=== PATIENT | female | born 1945 | race Two or more races ===

== ENCOUNTER 2018-09-25 17:18 | Inpatient (IN) | payer MEDICARE, MEDICAID | END 2018-09-29 13:40 | disposition home or self-care (01) | LOC: ER 17:18 → SUR 3N 09-26 15:01 → ED HOLD 23:36 | DX: A41.9 Sepsis, unspecified organism (principal); N17.0 Acute kidney failure with tubular necrosis; L03.113 Cellulitis of right upper limb; S61.439A Puncture wound without foreign body of unspecified hand, initial encounter ==

== ENCOUNTER 2025-01-24 10:49 | Outpatient (CLI) | payer MEDICARE, MEDICAID ==
[~2025-01-24 10:49] MED LIST: HYDR-4383 PO
--- NOTE | 2025-01-24 13:54 | RADIOLOGY REPORT ---
INDICATION: CHRONIC RIGHT FLANK PAIN TECHNIQUE: Multiple real-time sonographic images of the abdomen were obtained. COMPARISON: None FINDINGS: The liver is homogenous in echogenicity. The liver measures 13cm. No intrahepatic biliary ductal dilatation is noted. Wall-Echo- shadow sign. 6 mm gallbladder wall thickening. 5 mm common bile duct. The right kidney measures 8cm. No hydronephrosis. The pancreas is not well visualized due to obscuration from bowel gas. The visualized portions of the IVC and aorta are grossly unremarkable. IMPRESSION: Wall-Echo- shadow sign. 6 mm gallbladder wall thickening. 5 mm common bile duct. Findings suspicious for acute cholecystitis
== END 2025-01-24 23:59 | disposition home or self-care (01) ==
LOC: RAD 10:49
PROVIDERS: ATTEND Physician Assistant Medical
DX: R10.9 Unspecified abdominal pain (principal); K82.8 Other specified diseases of gallbladder
CPT/HCPCS: 76700